=== PATIENT | male | born 1960 | race Hispanic/Latino ===

== ENCOUNTER 2024-06-11 12:28 | Emergency (ER) | payer OTHER, MEDICARE ==
[2024-06-11] MEDS ORDERED: Ketorolac Tromethamine 30 MG (1 mL) VIAL ONE (14:12)
== END 2024-06-11 15:35 | disposition home or self-care (01) ==
LOC: CSHERS 12:28
DX: S16.1XXA Strain of muscle, fascia and tendon at neck level, initial encounter (principal); Z55.0 Illiteracy and low-level literacy; V49.3XXA Car occupant (driver) (passenger) injured in unspecified nontraffic accident, initial encounter; Y93.89 Activity, other specified
CPT/HCPCS: 71045; 72125; 96372; J1885